=== PATIENT | male | born 1945 | race Caucasian/White ===

== ENCOUNTER 2020-04-27 08:19 | Day surgery (SDC) | payer OTHER ==
[~2020-04-27] VITALS: Ht 175.3 cm; Wt 106.1 kg
[~2020-04-27 08:19] MED LIST: ASPI325 PO; ASPI81CH PO; BUPR100 PO; CITA10S PO; CITA20; CITALOPRAM HBR10 MG PO; Cipro500 MG PO; Citalopram HBr10 MG PO; EUTHYROX175 MCG PO; FEXPSEER PO; LORA1 PO; LOSA50 PO; LOSARTAN POTAS100 M1 PO; LOVA20 PO; LOVA40 PO; Lopressor 25 mg25 MG PO; MELO7.5; META800 PO; NIAC500 PO; OXYACE5T PO; Omeprazole20 M1; Synthroid/Levo0.2 MG; TESTOSTERONE CREAM TOP; THYROID T PO; XARELTO20 MG PO
--- NOTE | 2020-04-27 09:01 | NUR ---
04/27/20 0901 Nina Onofre TIME OUT AND SITE CHECK DONE WITH DR HENSON. PRP DRAWN AND ANTICOAGULANT WAS ADDED AND DELIVERED TO OR AND SPUN.
--- NOTE | 2020-04-27 13:11 | NUR ---
04/27/20 1311 [place],Lady PT. DENIES PAIN OR DISCOMFORT. DISCHARGE TEACHING DONE. RX FOR NORCO PROVIDED BUT PT. STATES NORCO MAKES HIM SICK AND DR. COLE HAD AGREED TO CHANGE TO PERCOCET. DR. COLE HAS LEFT THE BUILDING. CALLED HIS OFFICE AND EXPLAINED SITUATION. ADVISED TO HAVE PT COME TO OFFICE AFTER DISCHARGE AND NURSE MIDWIFE A NEW RX. EXPLAINED THIS TO PATIENT WHO STATES UNDERSTANDS. TEACHING DONE REGARDING MEDS/SHOULDER IMMOBILIZER/INCENTIVE SPIROMETER AND POLAR PACK. STATES UNDERSTANDS. DC HOME VIA WC WITH AND ALL BELONGINGS.
== END 2020-04-27 13:00 | disposition home or self-care (01) ==
LOC: ORSCSDS 08:19
PROVIDERS: Orthopaedic Surgery
PROC: 0RNK4ZZ Release Left Shoulder Joint, Percutaneous Endoscopic Approach (ICD-10-PCS; principal; 2020-04-27 09:15)
PROC: 0RHK44Z Insertion of Internal Fixation Device into Left Shoulder Joint, Percutaneous Endoscopic Approach (ICD-10-PCS; principal; 2020-04-27 09:15)
PROC: 0RBK4ZZ Excision of Left Shoulder Joint, Percutaneous Endoscopic Approach (ICD-10-PCS; principal; 2020-04-27 09:15)
PROC: 0LM24ZZ Reattachment of Left Shoulder Tendon, Percutaneous Endoscopic Approach (ICD-10-PCS; principal; 2020-04-27 09:15)
DX: M75.122 Complete rotator cuff tear or rupture of left shoulder, not specified as traumatic (principal); M75.22 Bicipital tendinitis, left shoulder; M75.42 Impingement syndrome of left shoulder; I10 Essential (primary) hypertension; I25.10 Atherosclerotic heart disease of native coronary artery without angina pectoris; E78.5 Hyperlipidemia, unspecified; G47.33 Obstructive sleep apnea (adult) (pediatric); E03.9 Hypothyroidism, unspecified; Z79.899 Other long term (current) drug therapy; Z79.82 Long term (current) use of aspirin; Z87.891 Personal history of nicotine dependence
CPT/HCPCS: C1713; J0171; J0690; J1100; J2250; J2405; J2704; J2795; J3010; J7120

== ENCOUNTER 2021-04-22 18:14 | Emergency (ER) | payer OTHER ==
[~2021-04-22] VITALS: Ht 175.3 cm; Wt 108.9 kg
[2021-04-22] MEDS ORDERED: Oxycodone-Apap1 EA14 PO (20:06)
[2021-04-22] MEDS ORDERED: OXYACE7.5T PO (20:16)
== END 2021-04-22 20:28 | disposition home or self-care (01) ==
LOC: ER 18:14
DX: K04.7 Periapical abscess without sinus (principal); I10 Essential (primary) hypertension; E78.5 Hyperlipidemia, unspecified; Z87.891 Personal history of nicotine dependence; Z79.899 Other long term (current) drug therapy
CPT/HCPCS: 93005; 93010; 96372; 99282-25; A9270; J1170; J1885

== ENCOUNTER 2021-04-24 00:11 | Emergency (ER) | payer OTHER ==
[~2021-04-24] VITALS: Ht 175.3 cm; Wt 108.9 kg
[~2021-04-24 00:11] MED LIST changes: +OXYACE7.5T PO; +Oxycodone-Apap1 EA14 PO
[2021-04-24] MEDS ORDERED: CLIN150 PO (00:21)
== END 2021-04-24 01:00 | disposition home or self-care (01) ==
LOC: ER 00:11
DX: K04.7 Periapical abscess without sinus (principal); I10 Essential (primary) hypertension; E78.5 Hyperlipidemia, unspecified; Z87.891 Personal history of nicotine dependence; Z79.899 Other long term (current) drug therapy
CPT/HCPCS: 99282

== ENCOUNTER → 2022-09-09 | Outpatient (CLI) | payer OTHER ==
[~2022-09-09] MED LIST changes: +CLIN150 PO
[2022-09-09 13:22] LABS: BASOPHILS ABSOLUTE AUTO 0.05 K/mm3 (0.00-0.23); BASOPHILS PERCENT AUTO 1 % (0-2); EOSINOPHILS ABSOLUTE AUTO 0.15 K/mm3 (0.00-0.68); EOSINOPHILS PERCENT AUTO 3 % (0-6); Hemoglobin 14.6 g/dL (13.5-17.5); IMMATURE GRAN ABSOLUTE AUTO 0.01 K/mm3 (0.00-0.10); IMMATURE GRAN PERCENT AUTO 0 % (0-1); LYMPHOCYTES PERCENT AUTO 28 % (21-46); MONOCYTES ABSOLUTE AUTO 0.34 K/mm3 (0.16-1.47); MONOCYTES PERCENT AUTO 7 % (4-13); Mean Corpuscular HGB 30.1 pg (26.0-34.0); Mean Corpuscular HGB Conc 34.8 g/dL (31.5-36.5); Mean Corpuscular Volume 87 fL (80-100); Mean Platelet Volume 9.1 fL (9.1-12.4); NEUTROPHILS ABSOLUTE AUTO 3.15 K/mm3 (1.96-9.15); NEUTROPHILS PERCENT AUTO 62 % (41-73); Platelet Count 209 K/mm3 (150-400); RDW Coefficient Variation 13.2 % (11.7-14.2); RDW Standard Deviation 41.6 fL (35.1-46.3); Red Blood Cell Count 4.85 M/mm3 (4.30-5.90)
[2022-09-09 14:07] LABS: Albumin, Blood 4.1 g/dL (3.4-5.0); Albumin/Globulin Ratio 1.2 (0.8-1.8); Bilirubin, Total 0.6 mg/dL (0.1-1.0); Bun/Creatinine Ratio 11.5 (12.0-20.0); Calcium, Blood 9.8 mg/dL (8.5-10.1); Creatinine, Blood 1.22 mg/dL (0.60-1.20); Globulin, Blood 3.5 g/dL (2.2-4.0); Potassium, Blood 4.4 mmol/L (3.5-5.5); Total Protein, Blood 7.6 g/dL (6.4-8.2)
== END | disposition home or self-care (01) ==
LOC: LAB SHORT 13:15 → LAB 13:15
PROVIDERS: Family Medicine
DX: R10.9 Unspecified abdominal pain (principal)
CPT/HCPCS: 80053; 85025

== ENCOUNTER → 2023-05-15 | Outpatient (CLI) | payer OTHER | END | disposition home or self-care (01) | LOC: LAB 02:00 → LAB SHORT 02:00 → EDSTATUS 05-07 11:45 → LAB FUT 05-07 11:45 | DX: E78.89 Other lipoprotein metabolism disorders (principal) | CPT/HCPCS: 81050 ==

== ENCOUNTER → 2024-09-23 | Outpatient (CLI) | payer MEDICARE ==
[2024-09-23 11:36] LABS: Stool Occult Blood Guaiac 1 Neg (Neg)
== END | disposition home or self-care (01) ==
LOC: LAB 09:38 → LAB SHORT 09:38
PROVIDERS: Internal Medicine
DX: R19.7 Diarrhea, unspecified (principal)
CPT/HCPCS: 82270